=== PATIENT | male | born 1995 | race Hispanic/Latino ===

== ENCOUNTER → 2023-08-17 | Day surgery (SDC) | payer OTHER ==
[~2023-08-17] MED LIST: ACETAMINOPHEN 1000 MG/100 ML 100 ML IV ONE; ADVIL; BUPIVACAINE HCL 0.5% INJ 30 ML VIAL INJ ONE; BUPIVACAINE LIPOSOME/PF 266 MG/20 ML IJ ONE; DEXAMETHASONE SOD PHOS INJ 4 MG/ML SDV ONE; FENTANYL CITRATE/PF 100MCG/2 ML INJ ONE; LACTATED RINGER'S 1,000 ML ONE; LIDOCAINE HCL 2% LOCAL INJ 5 ML SDV VIAL INJ ONE; MIDAZOLAM HCL 2 MG/2 ML VIAL ONE; NEOSTIGMINE 1 MG/ML 10ML VIAL ONE; ONDANSETRON HCL INJ 2MG/ML 2ML 2 MG/ML VIAL ONE; PROPOFOL IV EMULSION 10 MG/ML 20 ML VIAL ONE
[2023-08-17 11:37] VITALS: TEMP 97.6
[2023-08-17 13:12] VITALS: BP 143/84; PULSE 89; RESP 18; O2SAT 96
== END | disposition home or self-care (01) ==
LOC: OR 07:03
PROVIDERS: ATTEND Podiatrist Foot Surgery
DX: M96.0 Pseudarthrosis after fusion or arthrodesis (principal); T84.84XA Pain due to internal orthopedic prosthetic devices, implants and grafts, initial encounter; M21.171 Varus deformity, not elsewhere classified, right ankle; M62.461 Contracture of muscle, right lower leg; Y83.8 Other surgical procedures as the cause of abnormal reaction of the patient, or of later complication, without mention of misadventure at the time of the procedure; M19.071 Primary osteoarthritis, right ankle and foot; E66.01 Morbid (severe) obesity due to excess calories
CPT/HCPCS: 27687; 28740; 76000; C1713 ×2; C9290; J0131; J2001; J2250; J2405; J2704; J2710; J3010; J7121; C1889; J0690; J1100